=== PATIENT | female | born 1995 | race Two or more races ===

== ENCOUNTER 2018-03-22 14:17 | Inpatient (IN) | payer OTHER ==
--- NOTE | 2018-03-22 14:50 | ED ---
Psychiatric Complaint - HPI Summary HPI Summary: This patient is a 22 year old F presenting to [facility] accompanied by her friend and polly Curz with a chief complaint of SI with attempt at 2100 03/21/18. Pt was stopped by her SO Anthony from taking the entire contents of her Klonopin bottle. Pt endorses the same feelings of SI today upon waking. PMHx panic disorder 2013. She endorses taking 4 Klonopin at first to try to stop panic attack, then since there was no relief of sx she was desperate and tried to take the rest, but was stopped by intervention by her fianc. Pt endorses taking regular dose of Paxil. She notes that over the past few years sx have steadily worsened. Pt concerned she does not know if she can stop herself again. She states that [address] Figueroa who prescribed Klonopin; sx were improved for a while before this incident. Pt endorses SIB when younger. Pt denies prior suicide attempts. Rx Paxil. PMHx Hashimotos disorder. PMHx psoriatic arthritis for which she is Rx Tremfya. - History Of Current Complaint Chief Complaint: EDMentalHealth Time Seen by Provider: 03/22/18 14:29 Hx Obtained From: Patient Onset/Duration: Sudden Onset, Resolved Timing: Constant Severity Initially: Severe Severity Currently: None Character: Depressed, Anxious, Frustrated Aggravating Factor(s): Nothing Alleviating Factor(s): Nothing Associated Signs And Symptoms: Positive: Negative Related History: Positive For: Prior Psychiatric Issues Has Suicidal: Reports: Thoughts, With A Plan, Demonstrates Gesture. Denies: Has Prior Attempt(s) Has Homicidal: Denies: Thoughts - Allergies/Home Medications Allergies/Adverse Reactions: Allergies Allergy/AdvReac Type Severity Reaction Status Date / Time egg Allergy GI Upset Verified 03/22/18 14:48 gluten Allergy GI Upset Verified 03/22/18 14:48 lactose Allergy GI Upset Verified 03/22/18 14:48 salicylates Allergy Joint Pain Verified 03/22/18 14:23 Home Medications: Home Medications Glutamine [l-Glutamine] 500 mg PO DAILY 03/22/18 [History Confirmed 03/22/18] Guselkumab [Tremfya] 100 mg SUBCUT Q56D 03/22/18 [History Confirmed 03/22/18] PARoxetine HCL TAB* [Paxil TAB*] 10 mg PO DAILY 03/22/18 [History Confirmed ] clonazePAM TAB(*) [KlonoPIN TAB(*)] 0.25 mg PO TID PRN 03/22/18 [History Confirmed 03/22/18] PMH/Surg Hx/FS Hx/Imm Hx Endocrine/Hematology History: 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 Denies: Hx Sickle Cell Disease Cardiovascular History: Denies: Hx Myocardial Infarction Respiratory History: Denies: Hx Lung Cancer History: Denies: Hx Dialysis Musculoskeletal History: Reports: Hx Arthritis, Other Musculoskeletal History - psoriatic arthritis Sensory History: Reports: Hx Contacts or Glasses Denies: Hx Legally Blind, Hx Deafness Opthamlomology History: Reports: Hx Contacts or Glasses Denies: Hx Legally Blind EENT History: Denies: Hx Deafness Neurological History: Denies: Hx CVA Psychiatric History: Reports: Hx Anxiety, Hx Panic Disorder, Hx Suicide Attempt - Surgical History Surgery Procedure, Year, and Place: Right arm fx repair Infectious Disease History: No Infectious Disease History: Denies: Traveled Outside the [place] in Last 30 Days - Family History Known Family History: Positive: Cardiac Disease - [place], Other - Lung CA - Social History 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 Skin: The skin is warm and dry and skin color reflects adequate perfusion. HEENT: The head is normocephalic and atraumatic. The pupils are equal and reactive. The conjunctivae are clear and without drainage. Nares are patent and without drainage. Mouth reveals moist mucous membranes and the throat is without erythema and exudate. The external ears are intact. The ear canals are patent and without drainage. The tympanic membranes are intact. Neck: The neck is supple with full range of motion and non-tender. There are no carotid bruits. There is no neck vein distension. Respiratory: Chest is non-tender. Lungs are clear to auscultation and breath sounds are symmetrical and equal. Cardiovascular: Heart is regular rate and rhythm. There is no murmur or rub auscultated. There is no peripheral edema and pulses are symmetrical and equal. Abdomen: The abdomen is soft and non-tender. There are normal bowel sounds heard in all four quadrants and there is no organomegaly palpated. Musculoskeletal: There is no back tenderness noted. Extremities are non-tender with full range of motion. There is good capillary refill. There is no peripheral edema or calf tenderness elicited. Neurological: Patient is alert and oriented to person, place and time. The patient has symmetrical motor strength in all four extremities. Cranial nerves are grossly intact. Deep tendon reflexes are symmetrical and equal in all four extremities. Psychiatric: The patient has an appropriate affect and does not exhibit any anxiety or depression. Triage Information Reviewed: Yes Vital Signs On Initial Exam: Initial Vitals Temp Pulse Resp BP Pulse Ox 98.3 F 89 14 130/83 100 03/22/18 14:19 03/22/18 14:19 03/22/18 14:19 03/22/18 14:19 03/22/18 14:19 Vital Signs Reviewed: Yes Diagnostics - Vital Signs Vital Signs Temp Pulse Resp BP Pulse Ox 03/22/18 14:19 98.3 F 89 14 130/83 100 - Laboratory Result Diagrams: 03/22/18 14:55 03/22/18 14:55 Lab Statement: Any lab studies that have been ordered have been reviewed, and results considered in the medical decision making process. Course/Dx - Course Course Of Treatment: Ms. Cade presented to the emergency department after suffering for a long time with anxiety. It is gotten to the point where she has considered hurting herself and was stopped from taking an overdose of Klonopin by her fianc last night. She was medically cleared here in the emergency department and transferred to the Flex Unit where she underwent a mental health evaluation. They felt that she was appropriate for voluntary admission and she agreed. - Differential Dx/Clinical Impression Provider Diagnosis: Anxiety disorder, unspecified - Physician Notifications Discussed Care Of Patient With: Farzad Sosa Time Discussed With Above Provider: 17:02 Instructed by Provider To: Other - Kelton Nieves, accepts admission to [facility] with dx of unspecified anxiety disorder. Discharge - Sign-Out/Discharge Documenting (check all that apply): Patient Departure - admit - Discharge Plan Condition: Fair Disposition: PSYCHIATRIC FACILITY-[facility] - Billing Disposition and Condition Condition: FAIR Disposition: Psychiatric Facility [facility] - Attestation Statements Document Initiated by Scribe: Yes Documenting Scribe: Ben Ibanez Provider For Whom Kelli is Documenting (Include Credential): Dr. Ben Dang MD Scribe Attestation: Ben Pedraza, scribed for Dr. Ben Dang MD on 03/22/18 at 1844. Scribe Documentation Reviewed: Yes Provider Attestation: The documentation as recorded by the violaibBen chandler accurately reflects the service I personally performed and the decisions made by me, Dr. Ben Dang MD
[2018-03-22 15:15] LABS: Urine Appearance Cloudy; Urine Blood 1+ (Negative); Urine Color Yellow; Urine Ketones Trace (Negative); Urine Protein Negative (Negative); Urine Red Blood Cell 2+(6-10/hpf) (Absent); Urine Urobilinogen Negative (Negative); Urine White Blood Cell Trace(0-5/hpf) (Absent)
[2018-03-22 15:18] LABS: ABS Basophils 0 10^3/ul (0-0.2); ABS Eosinophils 0.1 10^3/ul (0-0.6); ABS Lymphocytes 2.5 10^3/ul (1.0-4.8); ABS Monocytes 0.4 10^3/ul (0-0.8); ABS Neutrophils 3.5 10^3/ul (1.5-7.7); ABS Nucleated RBC 0 10^3/ul; Eosinophil % 1.3 % (0-6); Hematocrit 38 % (35-47); Hemoglobin 12.8 g/dl (12.0-16.0); Mean Corpuscular HGB Conc 34 g/dl (31-36); Mean Corpuscular Hemoglobin 30 pg (27-31); Mean Corpuscular Volume 89 fL (80-97); Mean Platelet Volume 7.2 um3 (7.4-10.4); Nucleated Red Blood Cells % 0.1; Platelet Count 240 10^3/ul (150-450); Red Blood Count 4.29 10^6/ul (4.00-5.40); Red Cell Distribution Width 13 % (10.5-15); White Blood Count 6.5 10^3/ul (3.5-10.8)
[2018-03-22 15:39] LABS: EGFR Non-African American 93.5 (>60)
[2018-03-22] MEDS ORDERED: Al Hydrox/Mg Hydrox/Simet LIQ* 30 ML UDC PO PRN (20:27)
[2018-03-22] MEDS ORDERED: Acetaminophen TAB* 325 MG PO PRN (20:27)
[2018-03-23] MEDS: Vitamin THERAPEUTIC TAB PO SCH (09:25)
[2018-03-23] MEDS: LORazepam TAB(*) 0.5 MG PO PRN ×2 (16:01→23:50)
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
[2018-03-24] MEDS: Vitamin THERAPEUTIC TAB PO SCH (09:09)
[2018-03-24] MEDS: Venlafaxine EXT RELEASE CAP* 75 MG PO SCH (09:10)
--- NOTE | 2018-03-24 11:38 | PN ---
MHU: Group Therapy Note - Service Type Service Type: 30658 Group Psychotherapy - Cognitive Behavioral Group Therapy ( CBT):Patient was attentive and participatory in CBT programming this morning, and remained in good behavioral control. Patient expressed positive insights regarding relevant treatment interventions and goals.
--- NOTE | 2018-03-24 15:46 | PN ---
Subjective - Subjective Date of Service: 03/24/18 Service Type: [id number] Hosp care 15 min low complexity Subjective: "Barbara" has had some strong interactions with her fiance today. She also endorsed that there is a possibility that she might be a little more depressed than she let on. In spite of this, she still appears bright and professional in interactions. Objective - Appearance Appearance: Thin Framed Dysmorphic Features: No Hygiene: Normal Grooming: Fairly Well Kept - Behavior Psychomotor Activities: Normal Exhibits Abnormal Movement: No - Attitude and Relatedness Attitude and Relatedness: Cooperative Eye Contact: Good - Speech Quality: Unpressured Latencies: Normal Quantity: Appropriate - Mood Patient's Decription of Mood: "Good" - Affect Observed Affect: Good Affect Consistent with: Dysphoria - Thought Process Patient's Thought Process: Coherent Thought Content: No Passive Wish, No Suicidal Planning, No Homicidal Ideation, No Paranoid Ideation - Sensorium Experiencing Hallucinations: No, Sensorium is Clear Type of Hallucinations: Visual: No, Auditory: No, Command: No - Level of Consciousness Level of Consciousness: Alert Orientation: Yes Intact, Yes Orientated to Time, Yes Orientated to Place, Yes Orientated to Person - Impulse Control Impulse Control: Tenuous - Insight and Judgement Insight and Judgement: Fair - Group Participation Particating in Group Activities: Yes - Medication Management Medication Management Adherence: Yes - Additional Observations Comments: Barbara is pleasant to talk to and appears lost in thought when approached. She is interested in working on her emotions and is also interested in figuring out the source of her emotions, and in fact, what those emotions are. Assessment - Assessment Merits Inpatient Hospitalization: For Immediate Safety, For Discharge Planning Clinical Impression: Chang is nearly imperturbable. She is thoughtful and appears to be interested in what she is surrounded by or focusing on. Her MMPI indicated that she scored high on depression, which seemed to suprise her. Plan - Plan Treatment Plan: Name: CHANG BOYKIN Birthdate: 1995 [id number] Medications: Current Medications Acetaminophen (Tylenol Tab*) 650 mg PO Q4H PRN PRN Reason: PAIN or TEMP > 101 F Al Hydrox/Mg Hydrox/Simethicone (Maalox Plus*) 30 ml PO Q4H PRN PRN Reason: INDIGESTION Lorazepam (Ativan Tab(*)) 0.5 mg PO Q6H PRN PRN Reason: ANXIETY Last Admin: 03/23/18 23:50 Dose: 0.5 mg Multivitamins (Theragran Tab*) 1 tab PO DAILY NOLA Last Admin: 03/24/18 09:09 Dose: 1 tab Venlafaxine HCl (Effexor Xr Cap*) 75 mg PO DAILY NOLA Last Admin: 03/24/18 09:10 Dose: 75 mg - Discharge Plan Discharge Plan: Outpatient Follow Up Outpatient [facility] Additional Comments: Barbara could benefit significantly from therapy. She came here in part to get a therapist. At this time, Barbara will benefit from time spent on the unit to gather social interactions that may help her to identify her own emotions.
[2018-03-24] MEDS: LORazepam TAB(*) 0.5 MG PO PRN (22:09)
[2018-03-25 08:14] VITALS: BP 119/74
[2018-03-25] MEDS: Vitamin THERAPEUTIC TAB PO SCH (09:09)
[2018-03-25] MEDS: Venlafaxine EXT RELEASE CAP* 75 MG PO SCH (09:09)
[2018-03-25] MEDS ORDERED: Bisacodyl EC TAB* 5 MG PO ONE (10:19)
--- NOTE | 2018-03-25 13:09 | PN ---
MHU: Group Therapy Note - Service Type Service Type: [id number] Group Psychotherapy - Cognitive Behavioral Group Therapy ( CBT):Patient was attentive and participatory in CBT programming this morning, and remained in good behavioral control. Patient expressed positive insights regarding relevant treatment interventions and goals.
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
== END 2018-03-25 13:00 | disposition home or self-care (01) | DRG 756 ==
LOC: ED 14:17 → BSU 18:21
PROVIDERS: ADMIT Psychiatry & Neurology Psychiatry; ATTEND Psychiatry & Neurology Psychiatry
PROC: GZHZZZZ Group Psychotherapy (ICD-10-PCS; principal; 2018-03-22)
DX: F41.9 Anxiety disorder, unspecified (principal); F43.10 Post-traumatic stress disorder, unspecified; E06.3 Autoimmune thyroiditis; L40.50 Arthropathic psoriasis, unspecified; T42.4X2A Poisoning by benzodiazepines, intentional self-harm, initial encounter; F40.01 Agoraphobia with panic disorder; F32.9 Major depressive disorder, single episode, unspecified; Z91.012 Allergy to eggs; Z91.018 Allergy to other foods; Z82.49 Family history of ischemic heart disease and other diseases of the circulatory system; Z80.1 Family history of malignant neoplasm of trachea, bronchus and lung; Z88.8 Allergy status to other drugs, medicaments and biological substances; Z91.011 Allergy to milk products; Z92.83 Personal history of failed moderate sedation; Y92.9 Unspecified place or not applicable
CPT/HCPCS: 36415; 80053; 80061; 80307; 80320; 80329; 81003; 81015; 83036; 84443; 84702; 85025; 87086; 99283; A9270-GY; G0480